=== PATIENT | female | born 1945 | race Caucasian/White ===

== ENCOUNTER 2016-10-05 22:01 | Emergency (ER) | payer OTHER ==
--- NOTE | 2016-10-05 22:07 | PDOC ---
History of Present Illness - General Chief Complaint: Blood Pressure Problem Stated Complaint: HIGH BLOOD PRESSURE Time Seen by Provider: 10/05/16 22:06 History Source: Patient Exam Limitations: No Limitations - History of Present Illness Initial Comments: 10/05/16 22:26 This is a very anxious 70-year-old female who comes in with her family complaining of elevated blood pressure, feeling like she shaking and itching. Patient said that she noticed a rash in her arms and neck and it was itchy and she became very anxious about the rash and felt like she was shaky and took her blood pressure which was elevated so she came in for evaluation. As per her daughter who is doing the translation her mother takes her blood pressure multiple times a day. Her blood pressure normally runs once 40-160 systolic. Patient took an extra metoprolol just prior to coming in and her blood pressure was 188 systolic. Patient otherwise denied any shortness of breath, chest pain, headache, nausea, blurry vision or any other symptoms. PAST MEDICAL HISTORY: no significant history PAST SURGICAL HISTORY: no significant history FAMILY HISTORY: no pertinant history SOCIAL HISTORY: Pt lives with family and is employed. MEDICATIONS: reviewed ALLERGIES: As per nursing notes Review of Systems General: No fevers or chills, no weakness, no weight loss HEENT: No change in vision. No sore throat,. No ear pain CardioVascular: No chest pain or shortness of breath Respiratory:No cough, or wheezing. Gastrointestinal: no nausea, vomitting, diarrhea or constipation, No rectal bleeding Genitourinary: No dysuria, hematuria, or frequency Musculoskeletal: No joint or muscle pain or swelling Neurologic: No headache, vertigo, dizziness or loss of consciousness Psychiatric: nor depression Skin: No rashes or easy bruising Endocrine: no increased thirst or abnormal weight change Allergic: no skin or latex allergy All other systems reviewed and normal Exam: General: Well-nourished well-developed individual, anxious HEENT: Throat: Normal, tonsils normal, no erythema or exudate Neck: Supple, no meningeal signs, no lymphadenopathy Eyes::Pupils equal reactive and round, extraocular motion intact Chest: Nontender to palpation Cardiac: S1-S2 normal, regular rate and rhythm, no murmurs rubs or gallops Respiratory: Lungs clear to auscultation bilateral Abdomen: Soft, nondistended, normal bowel sounds, nontender to palpation diffusely Extremities: Warm, dry, no cyanosis, clubbing, or edema Skin there is some diffuse erythema and a few hives of the upper chest and back as well as arms bilateral. Neuro: Alert and oriented x3, nonfocal exam, grossly intact, normal gait Psych: Anxious mood and normal affect EKG normal sinus bradycardia at a rate of [address]-T wave changes Assessment and plan: This is a 70-year-old female with history of anxiety and hypertension who takes her blood pressure multiple times a day. Patient felt like her blood pressure was high when she developed some hives so took it and after taking several times it was actually high so she came in for evaluation. On arrival in the emergency room her blood pressure was 188 systolic. Patient was given something for anxiety and the hives and blood pressure improved. Patient had a workup that was otherwise unremarkable and she was to follow-up with her primary care doctor. Past History - Past Medical History Allergies/Adverse Reactions: Allergies Allergy/AdvReac Type Severity Reaction Status Date / Time No Known Allergies Allergy Verified 10/05/16 22:03 Home Medications: Ambulatory Orders Amlodipine Besylate [Norvasc -] 5 mg PO DAILY 10/05/16 Aspirin [Aspirin EC] 81 mg PO DAILY 10/05/16 Atorvastatin Ca [Lipitor] 20 mg PO HS 10/05/16 Metoprolol Tartrate [Lopressor -] 25 mg PO DAILY 10/05/16 HTN: Yes Hypercholesterolemia: Yes - Psycho/Social/Smoking Cessation Hx Anxiety: No Suicidal Ideation: No Smoking History: Never smoked Have you smoked in the past 12 months: No Hx Alcohol Use: No Drug/Substance Use Hx: No Substance Use Type: None ED Treatment Course - LABORATORY CBC & Chemistry Diagram: 10/05/16 22:25 10/05/16 22:25 *DC/Admit/Observation/Transfer Diagnosis at time of Disposition: Anxiety Hypertension Qualifiers: Hypertension type: essential hypertension Qualified Code(s): I10 - Essential ( primary) hypertension Allergic reaction Qualifiers: Encounter type: initial encounter Qualified Code(s): T78.40XA - Allergy, unspecified, initial encounter - Discharge Dispostion Disposition: HOME Condition at time of disposition: Stable - Referrals Referrals: Michelle Turner [Primary Care Provider] - - Patient Instructions Printed Discharge Instructions: How to Monitor Your Blood Pressure at Home Additional Instructions: Do not take your blood pressure more than once or twice a week. Return to the emergency department immediately with ANY new, persistent or worsening symptoms. Continue any medications as previously prescribed by your physician. You should follow up with your primary doctor as soon as possible regarding today's emergency department visit. . Please make sure your doctor reviews the results of your emergency evaluation. Thank you for coming to the Emergency Department today for your care. It was a pleasure to see you today. Please note that your evaluation is INCOMPLETE until you follow-up with your doctor.
[2016-10-05] MEDS ORDERED: cloNIDine HCL 0.1 MG TABLET PO ONE (22:09)
[2016-10-05 22:16] VITALS: TEMP 97.8; BMI 32.0
[2016-10-05] MEDS ORDERED: diphenhydrAMINE HCL 50 MG CAPSULE ONE (22:17)
[2016-10-05] MEDS ORDERED: ALPRAZolam 0.25 MG TABLET ONE (22:17)
[2016-10-05] MEDS ORDERED: ALPRAZolam 0.25 MG TABLET PO ONE (22:25)
[2016-10-05] MEDS ORDERED: diphenhydrAMINE HCL 50 MG CAPSULE PO ONE (22:25)
[2016-10-05 22:41] LABS: BASOPHIL 0.9 % (0-2.0); EOSINOPHIL 3.2 % (0-4.5); MCHC 33.7 g/dl (32.0-36.0); MEAN CELL VOLUME 86.1 fl (80-96); MEAN PLT VOLUME 10.6 fl (7.5-11.1); NEUTROPHILS 41.4 % (42.8-82.8); PLATELET COUNT 156 K/MM3 (134-434); RDW 13.7 % (11.6-15.6); WHITE BLOOD COUNT 5.3 K/mm3 (4.0-10.8)
[2016-10-05 22:50] LABS: ALBUMIN 4.5 g/dl (3.5-5.0); ALK PHOS 110 U/L (32-92); ANION GAP 8 (8-16); BILIRUBIN,TOTAL 0.4 mg/dl (0.2-1.0); CALCIUM 10.1 mg/dl (8.4-10.2); CO2 26 mmol/L (22-28); CREATININE 1.2 mg/dl (0.6-1.3); GLUCOSE,RANDOM 125 mg/dl (74-106); SGOT/AST 29 U/L (10-42); SGPT/ALT 23 U/L (10-40); TOT PROT 7.9 g/dl (6.4-8.3)
[2016-10-05 23:04] LABS: TROPONIN I (DFP) 0.04 ng/ml (0.03-0.50)
[2016-10-05 23:07] LABS: CK MB 7.1 ng/ml (0.3-4.0)
[2016-10-05 23:12] VITALS: BP 136/82; PULSE 65
[2016-10-05] MEDS ORDERED: OXYCODONE/APAP 5/325MG COMBO TABLET PO ONE (23:26)
--- NOTE | 2016-10-06 11:51 | EKG ---
Test Reason : Blood Pressure : / mmHG Vent. Rate : 058 BPM Atrial Rate : 058 BPM P-R Int : 162 ms QRS Dur : 068 ms QT Int : 436 ms P-R-T Axes : 063 017 007 degrees QTc Int : 428 ms SINUS BRADYCARDIA CANNOT RULE OUT SEPTAL INFARCT , AGE UNDETERMINED NONSPECIFIC T WAVE ABNORMALITY ABNORMAL ECG NO PREVIOUS ECGS AVAILABLE Confirmed by YANIV ROSA MD ([id number]) on 10/06/2016 11:50:54 AM Referred By: MD JORDAN Confirmed By:YANIV ROSA MD
== END 2016-10-05 23:54 | disposition home or self-care (01) ==
LOC: FER 22:01
DX: F41.9 Anxiety disorder, unspecified (principal); I10 Essential (primary) hypertension; T78.40XA Allergy, unspecified, initial encounter
CPT/HCPCS: 36415; 80053; 82550; 82553; 84484; 85025; 93005; 93010; 99281-25

== ENCOUNTER 2017-02-11 14:32 | Emergency (ER) | payer OTHER ==
--- NOTE | 2017-02-11 14:37 | PDOC ---
History of Present Illness - History of Present Illness Initial Comments: 02/11/17 16:35 The patient is a 71 year old female, with a significant past medical history of HTN, who presents to the emergency department with chest tightness and left sided numbness for 3 hours (since 12 noon). According to patients family member , patient was working in her daughters backyard when around noon, her left eye began to swell, her face became red, she felt tightness behind her head, chest, and back while resting in the yard. Her family member took the patients blood pressure and reports that it was 169/90. Patient says that she feels better now but the tightness is still there. She denies experiencing any unusual rashes recently. Her daughter states that she usually doesnt leave her mother unattended, especially in the garden after her mother was diagnosed with high blood pressure. She denies recent fevers, chills, headache or dizziness. She denies recent nausea, vomit, diarrhea or constipation. She denies recent shortness of breath. Allergies: NKA Past surgical history: None reported. Primary Care Physician: Michelle Jurado <Anali Montejo - Last Filed: 02/11/17 19:06> <Mckenna Roach - Last Filed: 02/12/17 07:21> - General Chief Complaint: Chest Pain Stated Complaint: CHEST PAIN & LEFT LEG NUMBNESS Time Seen by Provider: 02/11/17 14:36 Past History <Anali Montejo - Last Filed: 02/11/17 19:06> - Past Medical History HTN: Yes Hypercholesterolemia: Yes - Suicide/Smoking/Psychosocial Hx Smoking History: Never smoked Have you smoked in the past 12 months: No Hx Alcohol Use: No Drug/Substance Use Hx: No Substance Use Type: None <Mckenna Roach - Last Filed: 02/12/17 07:21> - Past Medical History Allergies/Adverse Reactions: Allergies Allergy/AdvReac Type Severity Reaction Status Date / Time No Known Allergies Allergy Verified 10/05/16 22:03 Home Medications: Ambulatory Orders Amlodipine Besylate [Norvasc -] 5 mg PO DAILY 10/05/16 Aspirin [Aspirin EC] 81 mg PO DAILY 10/05/16 Atorvastatin Ca [Lipitor] 20 mg PO HS 10/05/16 Metoprolol Tartrate [Lopressor -] 25 mg PO DAILY 10/05/16 Lisinopril 10 mg PO DAILY 02/11/17 Review of Systems - Review of Systems Able to Perform ROS?: Yes Comments:: 02/11/17 16:35 GENERAL/CONSTITUTIONAL: No fever or chills. No weakness. HEAD, EYES, EARS, NOSE AND THROAT: +tightness behind head. No change in vision. No ear pain or discharge. No sore throat. GASTROINTESTINAL: No nausea, vomiting, diarrhea or constipation. GENITOURINARY: No dysuria, frequency, or change in urination. CARDIOVASCULAR: +chest tightness. No shortness of breath. RESPIRATORY: No cough, wheezing, or hemoptysis. MUSCULOSKELETAL: +tightness in back. No joint or muscle swelling or pain. No neck pain. SKIN: + swollen and red left eyelid. No rash NEUROLOGIC: +LLE numbness. No headache, vertigo, loss of consciousness. ENDOCRINE: No increased thirst. No abnormal weight change. HEMATOLOGIC/LYMPHATIC: No anemia, easy bleeding, or history of blood clots. ALLERGIC/IMMUNOLOGIC: No hives or skin allergy. Is the patient limited Spanish proficient: Yes <Anali Montejo - Last Filed: 02/11/17 19:06> *Physical Exam - Vital Signs Last Vital Signs Temp Pulse Resp BP Pulse Ox 97.6 F 110 H 16 141/85 99 02/11/17 14:33 02/11/17 14:33 02/11/17 14:33 02/11/17 14:33 02/11/17 14:33 - Physical Exam Comments: 02/11/17 16:37 GENERAL: Awake, alert, and fully oriented, in no acute distress HEAD: No signs of trauma EYES: +small erythematous region to left upper eyelid & some swelling. PERRLA, EOMI, sclera anicteric, conjunctiva clear ENT: Auricles normal inspection, hearing grossly normal, nares patent, oropharynx clear without exudates. Moist mucosa NECK: Normal ROM, supple, no lymphadenopathy, JVD, or masses LUNGS: Breath sounds equal, clear to auscultation bilaterally. No wheezes, and no crackles HEART: Regular rate and rhythm, normal S1 and S2, no murmurs, rubs or gallops ABDOMEN: Soft, nontender, normoactive bowel sounds. No guarding, no rebound. No masses EXTREMITIES: Normal range of motion, no edema. No clubbing or cyanosis. No cords, erythema, or tenderness NEUROLOGICAL: +decreased sensation on left side. strength 5/5 Cranial nerves II through XII grossly intact. Normal speech, normal gait SKIN: + redness & swelling to left eyelid. Warm, Dry, normal turgor, <Anali Montejo - Last Filed: 02/11/17 19:06> ED Treatment Course - LABORATORY CBC & Chemistry Diagram: 02/11/17 15:00 02/11/17 15:00 - ADDITIONAL ORDERS Additional order review: Laboratory Results 02/11/17 02/11/17 15:00 15:00 PT with INR 12.6 INR 1.13 Sodium 133 L Potassium 4.5 Chloride 95 L Carbon Dioxide 23 Anion Gap 15 BUN 22 H Creatinine 0.9 D Creat Clearance w eGFR > 60 Random Glucose 133 H Calcium 10.3 H Total Bilirubin 0.8 D AST 29 ALT 20 Alkaline Phosphatase 88 Creatine Kinase 298 H Total Protein 8.0 Albumin 5.1 H Lipase 33 02/11/17 15:00 RBC 4.13 MCV 88.0 MCHC 34.5 RDW 13.1 MPV 11.3 H Neutrophils % 78.3 D Lymphocytes % 15.3 D Monocytes % 5.8 Eosinophils % 0.4 D Basophils % 0.2 - Medications Given in the ED: ED Medications Discontinued Medications Generic Name Dose Route Start Last Admin Trade Name Freq PRN Reason Stop Dose Admin Diphenhydramine HCl 25 mg 02/11/17 15:15 02/11/17 15:50 Benadryl Injection - IVPB 02/11/17 15:16 25 mg ONCE ONE Administration <Anali Montejo - Last Filed: 02/11/17 19:06> - LABORATORY CBC & Chemistry Diagram: 02/11/17 15:00 02/11/17 15:00 <Mckenna Roach - Last Filed: 02/12/17 07:21> *DC/Admit/Observation/Transfer - Attestations Scribe Attestion: 02/11/17 16:40 Documentation prepared by Anali Montejo, acting as medical staff coordinator for Mckenna Roach MD. <Anali Montejo - Last Filed: 02/11/17 19:06> <Mckenna Roach - Last Filed: 02/12/17 07:21> Diagnosis at time of Disposition: Insect bite, Essential (primary) hypertension, Pain in left leg - Discharge Dispostion Disposition: HOME Condition at time of disposition: Improved - Referrals Referrals: Michelle Turner [Primary Care Provider] - 3 days - Patient Instructions Additional Instructions: You were evaluted for a bite to the left upper eyelid and for high blood pressure and pain in your left leg and left arm. All of the tests came out normal, EKG no change from old EKG, CT angiogram normal, blood tests normal. Continue all of your home medications. Follow up with your primary MD next week for repeat blood pressure check. Return to the ER for any severe or progressive symptoms.
[2017-02-11 15:12] VITALS: BMI 31.8
[2017-02-11 15:35] LABS: BASOPHIL 0.2 % (0-2.0); EOSINOPHIL 0.4 % (0-4.5); MCH 30.4 pg (25.7-33.7); MCHC 34.5 g/dl (32.0-36.0); MEAN PLT VOLUME 11.3 fl (7.5-11.1); NEUTROPHILS 78.3 % (42.8-82.8); PLATELET COUNT 161 K/MM3 (134-434); RDW 13.1 % (11.6-15.6); WHITE BLOOD COUNT 6.8 K/mm3 (4.0-10.8)
[2017-02-11 15:39] LABS: INR 1.13 (0.82-1.09); PROTHROMBIN TIME (PATIENT) 12.6 SEC (10.2-13.0)
[2017-02-11 15:45] LABS: ALBUMIN 5.1 g/dl (3.5-5.0); ALK PHOS 88 U/L (32-92); ANION GAP 15 (8-16); BILIRUBIN,TOTAL 0.8 mg/dl (0.2-1.0); CALCIUM 10.3 mg/dl (8.4-10.2); CO2 23 mmol/L (22-28); CPK 298 IU/L (26-192); CREATININE 0.9 mg/dl (0.6-1.3); GLUCOSE,RANDOM 133 mg/dl (74-106); SGOT/AST 29 U/L (10-42); SGPT/ALT 20 U/L (10-40)
[2017-02-11 16:37] LABS: TROPONIN I (DFP) < 0.03 ng/ml (0.03-0.50)
[2017-02-11 19:25] VITALS: BP 122/81; PULSE 80; TEMP 98.4
--- NOTE | 2017-02-11 19:41 | PDOC ---
*Physical Exam - Vital Signs Last Vital Signs Temp Pulse Resp BP Pulse Ox 98.4 F 80 16 122/81 97 02/11/17 19:24 02/11/17 19:24 02/11/17 19:24 02/11/17 19:24 02/11/17 19:24 ED Treatment Course - LABORATORY CBC & Chemistry Diagram: 02/11/17 15:00 02/11/17 15:00 - ADDITIONAL ORDERS Additional order review: Laboratory Results 02/11/17 02/11/17 15:00 15:00 PT with INR 12.6 INR 1.13 Sodium 133 L Potassium 4.5 Chloride 95 L Carbon Dioxide 23 Anion Gap 15 BUN 22 H Creatinine 0.9 D Creat Clearance w eGFR > 60 Random Glucose 133 H Calcium 10.3 H Total Bilirubin 0.8 D AST 29 ALT 20 Alkaline Phosphatase 88 Creatine Kinase 298 H Creatine Kinase Index 2.0 CK-MB (CK-2) 6.2 H Troponin I < 0.03 L Total Protein 8.0 Albumin 5.1 H Lipase 33 02/11/17 15:00 RBC 4.13 MCV 88.0 MCHC 34.5 RDW 13.1 MPV 11.3 H Neutrophils % 78.3 D Lymphocytes % 15.3 D Monocytes % 5.8 Eosinophils % 0.4 D Basophils % 0.2 - Medications Given in the ED: ED Medications Discontinued Medications Generic Name Dose Route Start Last Admin Trade Name Freq PRN Reason Stop Dose Admin Diphenhydramine HCl 25 mg 02/11/17 15:15 02/11/17 15:50 Benadryl Injection - IVPB 02/11/17 15:16 25 mg ONCE ONE Administration Medical Decision Making - Medical Decision Making 02/11/17 19:36 Patient was seen and evaluated by Dr. Roach. She has a hx of labile htn. She was out in the garden today and felt her left eye twitching and noted some swelling. She became very nervous and her blood pressure went up. Her left leg and left arm felt painful, and her pressure was high, so she came to the ED. BP normalized here. Left eye was noted with left upper lid with a red welt consistent with a bug bite. Given benadryl. Now feels well. Repeat vital signs normal. Labs reviewed by Dr. Roach and by me, normal. ECG with NSR, poor R wave progression, but no change from old tracing in our files. CTAngiogram of the aorta was pending at the time of sign out, reviewed and normal. Repeat exam, normal gait, normal neuro, left eye with slight swelling of the upper lid with small red welt, almost back to normal. Motor and sensory exam, romberg and pronator all normal. Patient is on statin, asa and bp meds, which she will continue. She will f/u with PMD next week. Stable for discharge. *DC/Admit/Observation/Transfer Diagnosis at time of Disposition: Essential (primary) hypertension, Pain of left lower extremity Insect bite Qualifiers: Encounter type: initial encounter Qualified Code(s): W57.XXXA - Bitten or stung by nonvenomous insect and other nonvenomous arthropods, initial encounter ; W57.XXXA - Bitten or stung by nonvenomous insect and other nonvenomous arthropods, initial encounter - Discharge Dispostion Disposition: HOME Condition at time of disposition: Improved Admit: No - Referrals Referrals: Michelle Turner [Primary Care Provider] - 3 days - Patient Instructions Additional Instructions: You were evaluted for a bite to the left upper eyelid and for high blood pressure and pain in your left leg and left arm. All of the tests came out normal, EKG no change from old EKG, CT angiogram normal, blood tests normal. Continue all of your home medications. Follow up with your primary MD next week for repeat blood pressure check. Return to the ER for any severe or progressive symptoms. - Post Discharge Activity
--- NOTE | 2017-02-12 19:31 | EKG ---
Test Reason : Blood Pressure : / mmHG Vent. Rate : 099 BPM Atrial Rate : 099 BPM P-R Int : 150 ms QRS Dur : 078 ms QT Int : 350 ms P-R-T Axes : 065 041 018 degrees QTc Int : 449 ms NORMAL SINUS RHYTHM BASELINE ARTIFACT NONSPECIFIC ST AND T WAVE ABNORMALITY SEPTAL INFARCT (CITED ON OR BEFORE 05-OCT-2016) ABNORMAL ECG WHEN COMPARED WITH ECG OF 05-OCT-2016 23:46, VENT. RATE HAS INCREASED BY 41 BPM REPEAT EKG IF CLINICALLY INDICATED Confirmed by ALMA SALAMANCA MD ([id number]) on 02/12/2017 7:31:32 PM Referred By: LEWIS Confirmed By:ALMA SALAMANCA MD
== END 2017-02-11 19:53 | disposition home or self-care (01) ==
LOC: FER 14:32
PROC: 3E033GC Introduction of Other Therapeutic Substance into Peripheral Vein, Percutaneous Approach (ICD-10-PCS; principal; 2017-02-11)
DX: S00.262A Insect bite (nonvenomous) of left eyelid and periocular area, initial encounter (principal); X58.XXXA Exposure to other specified factors, initial encounter; Y93.89 Activity, other specified; Y92.9 Unspecified place or not applicable; I10 Essential (primary) hypertension; M79.605 Pain in left leg; E78.5 Hyperlipidemia, unspecified
CPT/HCPCS: 36415; 71275-TC; 74174-TC; 80053; 82553; 83690; 84484; 85025; 85610; 93005; 96374; 99284-25

== ENCOUNTER 2018-03-03 18:41 | Emergency (ER) | payer OTHER ==
--- NOTE | 2018-03-03 19:05 | PDOC ---
History of Present Illness - General History Source: Patient Exam Limitations: No Limitations - History of Present Illness Initial Comments: 03/03/18 19:12 The patient is a 72 year old female with a significant PMH of HTN and HLD who presents to the emergency department with left lower leg pain today. Patient states she came from [place] in December and had left calf pain since for which she had an ultrasound done on 12/22 in the ER which showed no evidence of DVT. Patient reports sharp, left lower leg pain today, which made it difficult for her to ambulate. Patient notes she also heard a crackling sound on her left lower leg when she was trying to put her pants on today. Patient has seen her PCP for this pain and was told it may be a knee problem. Patient was prescribed ibuprofen for her pain with no relief. Daughter is at bedside and states the patient occasionally has muscle spasms at night, which wake her up from her sleep. Patient has no other associated symptoms. The patient denies chest pain, shortness of breath, headache and dizziness. Denies fever, chills, nausea, vomit, diarrhea and constipation. Denies dysuria, frequency, urgency and hematuria. Allergies: NKA Past surgical history: None reported. Social history: No reported alcohol, drug or cigarette use. <Sari Mukherjee - Last Filed: 03/03/18 19:12> <Nikko Sharma - Last Filed: 03/04/18 03:40> - General Chief Complaint: Pain Stated Complaint: LEFT LEG PAIN FROM CALF TO BEHIND Past History <Sari Mukherjee - Last Filed: 03/03/18 19:12> - Past Medical History COPD: No HTN: Yes Hypercholesterolemia: Yes - Suicide/Smoking/Psychosocial Hx Smoking History: Never smoked Have you smoked in the past 12 months: No Number of Cigarettes Smoked Daily: 0 Information on smoking cessation initiated: No Hx Alcohol Use: Yes (SOCIAL) Drug/Substance Use Hx: No Substance Use Type: Alcohol <Nikko Sharma - Last Filed: 03/04/18 03:40> - Past Medical History Allergies/Adverse Reactions: Allergies Allergy/AdvReac Type Severity Reaction Status Date / Time No Known Allergies Allergy Verified 03/03/18 18:43 Home Medications: Ambulatory Orders Amlodipine Besylate [Norvasc -] 10 mg PO DAILY 10/05/16 Aspirin [Aspirin EC] 81 mg PO DAILY 10/05/16 Atorvastatin Ca [Lipitor] 40 mg PO HS 10/05/16 Metoprolol Tartrate [Lopressor -] 50 mg PO DAILY 10/05/16 Cyclobenzaprine HCl [Flexeril -] 5 mg PO BID PRN #6 tablet 03/03/18 Ibuprofen [Motrin -] 800 mg PO DAILY 03/03/18 Review of Systems - Review of Systems Able to Perform ROS?: Yes Comments:: 03/03/18 19:14 ADULT ROS GENERAL/CONSTITUTIONAL: No fever or chills. No weakness. HEAD, EYES, EARS, NOSE AND THROAT: No change in vision. No ear pain or discharge. No sore throat. CARDIOVASCULAR: No chest pain or shortness of breath. RESPIRATORY: No cough, wheezing, or hemoptysis. GASTROINTESTINAL: No nausea, vomiting, diarrhea or constipation. GENITOURINARY: No dysuria, frequency, or change in urination. MUSCULOSKELETAL: (+) Left lower extremity pain. No neck or back pain. SKIN: No rash NEUROLOGIC: No headache, vertigo, loss of consciousness, or change in strength/ sensation. ENDOCRINE: No increased thirst. No abnormal weight change. HEMATOLOGIC/LYMPHATIC: No anemia, easy bleeding, or history of blood clots. ALLERGIC/IMMUNOLOGIC: No hives or skin allergy. <Sari Mukherjee - Last Filed: 03/03/18 19:12> *Physical Exam - Vital Signs Last Vital Signs Temp Pulse Resp BP Pulse Ox 98.1 F 101 H 20 164/75 100 03/03/18 18:43 03/03/18 18:43 03/03/18 18:43 03/03/18 18:43 03/03/18 18:43 - Physical Exam Comments: 03/03/18 19:14 ADULT EXAM GENERAL: Awake, alert, and fully oriented, in no acute distress HEAD: No signs of trauma EYES: PERRLA, EOMI, sclera anicteric, conjunctiva clear ENT: Auricles normal inspection, hearing grossly normal, nares patent, oropharynx clear without exudates. Moist mucosa NECK: Normal ROM, supple, no lymphadenopathy, JVD, or masses LUNGS: Breath sounds equal, clear to auscultation bilaterally. No wheezes, and no crackles HEART: Regular rate and rhythm, normal S1 and S2, no murmurs, rubs or gallops ABDOMEN: Soft, nontender, normoactive bowel sounds. No guarding, no rebound. No masses EXTREMITIES: Normal range of motion, no edema. No clubbing or cyanosis. No cords, erythema. (+) Mild left lower leg tenderness. NEUROLOGICAL: Cranial nerves II through XII grossly intact. Normal speech, normal gait SKIN: Warm, Dry, normal turgor, no rashes or lesions noted. <Sari Mukherjee - Last Filed: 03/03/18 19:12> - Vital Signs Last Vital Signs Temp Pulse Resp BP Pulse Ox 98.1 F 101 H 20 164/75 100 03/03/18 18:43 03/03/18 18:43 03/03/18 18:43 03/03/18 18:43 03/03/18 18:43 <Nikko Sharma - Last Filed: 03/04/18 03:40> Medical Decision Making - Medical Decision Making 03/04/18 03:39 nonspecific leg pain previously worked up for DVT, negative at the time plain films today unremarkable, referred to radiology for definitive read <Nikko Sharma - Last Filed: 03/04/18 03:40> *DC/Admit/Observation/Transfer - Attestations Scribe Attestion: 03/03/18 19:14 Documentation prepared by Sari Mukherjee, acting as director medical writing for Nikko Sharma MD. <Sari Mukherjee - Last Filed: 03/03/18 19:12> <Nikko Sharma - Last Filed: 03/04/18 03:40> Diagnosis at time of Disposition: Leg pain Qualifiers: Laterality: left Qualified Code(s): M79.605 - Pain in left leg - Discharge Dispostion Disposition: HOME Condition at time of disposition: Stable - Prescriptions Prescriptions: Cyclobenzaprine HCl [Flexeril -] 5 mg PO BID PRN #6 tablet PRN Reason: Muscle Spasms - Patient Instructions Additional Instructions: Please followup with your doctor for continuing care
[2018-03-03 19:25] VITALS: BP 164/75; PULSE 101; TEMP 98.1; BMI 34.7
== END 2018-03-03 20:26 | disposition home or self-care (01) ==
LOC: FER 18:41
DX: M79.605 Pain in left leg (principal); I10 Essential (primary) hypertension; E78.00 Pure hypercholesterolemia, unspecified
CPT/HCPCS: 73560-TC-LT-FY; 73590-TC-LT-FY; 99282-25

== ENCOUNTER 2020-12-21 22:04 | Emergency (ER) | payer OTHER ==
[2020-12-21 22:15] VITALS: BMI 28.8
[2020-12-21] MEDS ORDERED: ACETAMINOPHEN 1000 MG/100 ML VIAL (NON FORMULARY) IVPB ONE (22:26)
[2020-12-21] MEDS ORDERED: METOPROLOL TARTRATE 25 MG TABLET (FP) PO ONE (22:27)
[2020-12-21] MEDS ORDERED: LISINOPRIL 20 MG TABLET PO ONE (22:43)
[2020-12-21] MEDS ORDERED: amLODIPine BESYLATE 5 MG TABLET (FP) PO ONE (22:43)
[2020-12-21] MEDS ORDERED: ACETAMINOPHEN INJECTION 100 ML IVPB ONE (22:46)
[2020-12-21] MEDS ORDERED: METOPROLOL TARTRATE 50 MG TABLET (FP) ONE (22:46)
[2020-12-21 22:57] LABS: HEMOGLOBIN 11.1 GM/dl (10.7-15.3); MEAN CELL VOLUME 88.1 fl (80-96); MEAN PLT VOLUME 10.8 fl (7.5-11.1); MONO % 9.6 % (3.8-10.2); RDW 13.4 % (11.6-15.6); WHITE BLOOD COUNT 4.9 K/mm3 (4.0-10.8)
[2020-12-21] MEDS ORDERED: LISINOPRIL 5 MG TABLET ONE (22:59)
[2020-12-21] MEDS ORDERED: amLODIPine BESYLATE 5 MG TABLET (FP) ONE (22:59)
[2020-12-21] MEDS ORDERED: CEFTRIAXONE 1,000 MG in DEXTROSE 5%-WATER - 50 ML IVPB ONE (23:03)
[2020-12-21 23:04] LABS: EPITHELIAL CELLS FEW /hpf
[2020-12-21 23:04] LABS: BASO % 1.6 % (0-2.0); EOS % 1.5 % (0-4.5); HEMATOCRIT 32.9 % (32.4-45.2); LYMPH % 30.7 % (8-40); MCH 29.7 pg (25.7-33.7); MCHC 33.7 g/dl (32.0-36.0); NEUT % 56.6 % (42.8-82.8); PLATELET COUNT 117 10^3/uL (134-434); RBC 3.74 M/mm3 (3.60-5.2)
[2020-12-21] MEDS ORDERED: cefTRIAXone SODIUM 1 GM VIAL ONE (23:04)
[2020-12-21 23:11] LABS: ALBUMIN 4.2 g/dl (3.4-5.0); ALK PHOS 71 U/L (45-117); ANION GAP 9 MMOL/L (8-16); BILIRUBIN,TOTAL 0.7 mg/dl (0.2-1); CALCIUM 9.5 mg/dl (8.5-10); CHLORIDE 101 mmol/L (98-107); CO2 24 mmol/L (21-32); GLUCOSE,RANDOM 132 mg/dl (74-106); SGOT/AST 23 U/L (15-37); SGPT/ALT 11 U/L (13-61); SODIUM 134 mmol/L (136-145)
[2020-12-22] MEDS ORDERED: KETOROLAC TROMETHAMINE 30 MG/1 ML VIAL IVPUSH ONE (00:17)
[2020-12-22] MEDS ORDERED: KETOROLAC TROMETHAMINE 30 MG/1 ML VIAL ONE ×2 (00:23→00:24)
[2020-12-22 00:53] VITALS: BP 154/82; PULSE 64; TEMP 98.2
== END 2020-12-22 00:56 | disposition home or self-care (01) ==
LOC: FER 22:04
PROC: 3E0333Z Introduction of Anti-inflammatory into Peripheral Vein, Percutaneous Approach (ICD-10-PCS; principal; 2020-12-21)
PROC: 3E03329 Introduction of Other Anti-infective into Peripheral Vein, Percutaneous Approach (ICD-10-PCS; 2020-12-21)
PROC: 3E0333Z Introduction of Anti-inflammatory into Peripheral Vein, Percutaneous Approach (ICD-10-PCS; 2020-12-21)
DX: N30.90 Cystitis, unspecified without hematuria (principal); R10.9 Unspecified abdominal pain; R51.9 Headache, unspecified
CPT/HCPCS: 36415; 70450-TC; 71045-TC-FY; 74176-TC; 80053; 81003; 81015; 82550; 83605; 84484; 85025; 87040; 87086; 93005; 99285-25; C9803; J0131; U0003; U0005